=== PATIENT | female | born 1940 | race Caucasian/White ===

== ENCOUNTER 2017-04-03 13:47 | Inpatient (IN) | payer MEDICARE, BC ==
--- OUTSIDE RECORDS SUMMARY | 2017-04-03 14:10 | XMS REPORT | Continuity of Care Document ---
:1940 Author Organization [facility] ([facility]) Address [address] [place] [address] Phone [phone] Care Team Providers Name Role Phone Allen Ramos Primary Care Provider [phone] Source Comments This disclosure is being made pursuant to the Care Everywhere program, applicable federal and state laws, and may not contain all informaitonavailable regarding this patient.[facility] ([facility]) Active Allergies and Adverse Reactions Allergen Noted Date Severity Reactions Comments Penicillins Angioedema right arm swelled up and felt burned Current Medications Prescription Sig. Disp. Refills Start Date End Date Status Amantadine 100 mg Tab Take 100 mg by mouth Active daily. fexofenadine 180 mg Take 180 mg by mouth Active tablet daily. Cholecalciferol, Take 1 Cap by mouth 3 Active Vitamin D3, (VITAMIN times daily. D) 400 unit Cap lovaSTATIN 40 mg Take 40 mg by mouth Active tablet every evening. citalopram 20 mg Take 20 mg by mouth Active tablet daily. escitalopram Take 5 mg by mouth Active (LEXAPRO) 5 mg tablet daily. clonazePAM 0.5 mg Take 0.5 mg by mouth Active tablet daily. fluticasone (FLONASE) use 2 Sprays into the Active 50 mcg/Actuation nose 2 times daily. nasal spray Indications: ALLERGIC RHINITIS omeprazole 40 mg Take 40 mg by mouth Active extended release daily. capsule carbidopa-levodopa Take 1 Tab by mouth 3 Active 25-100 mg per tablet times daily. donepezil 5 mg tablet Take 10 mg by mouth at Active bedtime. Indications: MILD TO MODERATE ALZHEIMER'S TYPE DEMENTIA oxybutynin 5 mg Take 5 mg by mouth 3 Active tablet times daily. gabapentin 300 mg Take 300 mg by mouth 2 Active capsule times daily. QUEtiapine 25 mg Take 25 mg by mouth 2 Active tablet times daily. HYDROcodone-acetamino Take 1 Tab by mouth 20 Tab 0 05/02/2014 Active phen 5-325 mg per every 4 hours as tablet needed for Pain. DO NOT EXCEED 3,000 MG ACETAMINOPHEN PER DAY FROM ALL SOURCES Indications: PAIN ibuprofen 800 mg Take 1 Tab by mouth 20 Tab 0 05/02/2014 Active tablet every 6 hours as needed for Pain. DO NOT EXCEED 3,200 MG IBUPROFEN PER DAY FROM ALL SOURCES Indications: PAIN Active Problems Problem Noted Date Mixed incontinence urge and stress (male)(female) 10/12/2011 Parkinson's disease 10/12/2011 Pre-operative cardiovascular examination 07/22/2004 Essential hypertension, benign 07/22/2004 Social History Tobacco Use Types Packs/Day Years Used Date Former Smoker Cigarettes 1 Quit: 11/06/1991 Smokeless Tobacco: Never Used Alcohol Use Drinks/Week oz/Week Comments Yes 1 Cans of beer Last Filed Vital Signs Vital Sign Reading Time Taken Blood Pressure 113/52 05/19/2014 10:06 AM CDT Pulse 68 05/19/2014 10:06 AM CDT Temperature 36.7 C (98.1 F) 05/19/2014 10:06 AM CDT Respiratory Rate 20 07/19/2013 12:28 PM CDT Height 1.6 m (5' 2.99") 05/19/2014 10:06 AM CDT Weight 63.504 kg (140 lb) 05/19/2014 10:06 AM CDT Body Mass Index 24.81 05/19/2014 10:06 AM CDT Oxygen Saturation 100% 05/19/2014 10:06 AM CDT Plan of Care Health Maintenance Due Date Last Done Comments Hepatitis B Vaccine (1 of 3 - Primary Series) 1940 Tdap Vaccine 1951 Lipid Disorder Screening 1958 Td Vaccine 1958 Mammogram 1980 Colonoscopy 1990 Zoster Vaccine 2000 Osteoporosis Screening (DXA Bone Density) 2005 Pneumococcal Vaccine (1 of 2 - PCV13) 2005 Influenza Vaccine: Seasonal (#1) 06/06/2016 Results from Last 3 Months Not on file
[2017-04-03] MEDS: NORMAL SALINE 1,000 ML IV PRN (14:18)
[2017-04-03 14:28] LABS: Mean Cell Volume 87.7 fl (78-100); Mean Corpuscular Hgb Conc 31.9 g/dl (32-36); Mean Platelet Volume 8.6 fl (6.0-9.5); Neutrophil # 8.6 K/mm3 (1.3-6.0); Neutrophil % 75.3 % (42-75.0); Platelet Count 355 K/mm3 (150-450); Red Blood Count 2.61 M/mm3 (4.2-5.4); Red Cell Distribution Width 17.4 % (11.5-14.0); White Blood Count 11.4 K/mm3 (4.0-10.5)
[2017-04-03 14:33] LABS: Hematocrit 22.9 % (37.0-47.0); Hemoglobin 7.3 gm/dL (12.5-16.0)
[2017-04-03 14:42] LABS: Albumin * 2.1 gm/dl (3.4-5.0); Anion Gap 11.5 mmol/L (6.8-13.8); BUN/Creatinine Ratio 38.8 (9.0-21.6); Bilirubin, Total 0.2 mg/dL (0.0-1.1); Ca. Corrected For Albumin 10.5 mg/dL (8.4-10.2); Calcium * 9.3 mg/dL (7.9-10.9); Potassium 4.5 mmol/L (3.4-4.6); Total Protein 6.8 gm/dL (6.2-8.2)
--- NOTE | 2017-04-03 14:54 | ERNOTE ---
Medical Problem HPI - Narrative Date of Service: 04/03/17 - General Chief Complaint: Fever Time Seen by Provider: 04/03/17 13:53 Source: EMS Exam Limitations: dementia - Immun/Allergies/Home Medications Immunizations: IMMUNIZATION HX Immunizations Up to Date Yes History of Influenza Vaccine Yes Hx Pneumococcal Vaccination Yes Allergies/Adverse Reactions: Allergies Penicillins Allergy (Verified 04/03/17 14:05) Home Medications: HOME MEDICATIONS Acetaminophen [Tylenol] 650 mg PO QID PRN 07/01/16 [Last Taken Unknown] Cholecalciferol (Vitamin D3) [Vitamin D3] 2,000 unit PO DAILY 07/01/16 [Last Taken Unknown] Clonidine HCl [Catapres] 0.1 mg PO TID 07/01/16 [Last Taken Unknown] Donepezil HCl [Aricept] 10 mg PO HS 07/01/16 [Last Taken Unknown] Omeprazole 40 mg PO DAILY 07/01/16 [Last Taken Unknown] Polyethylene Glycol 3350 [Gavilax] 17 gm PO DAILY PRN 07/01/16 [Last Taken Unknown] Vits A,C,E/Lutein/Minerals [I-Faviola Tablet] 2 each PO BID 07/01/16 [Last Taken Unknown] LORazepam [Ativan] 0.5 mg PO Q4H PRN #60 tablet 07/15/16 [Last Taken Unknown] Losartan Potassium [Cozaar] 50 mg PO HS #30 tablet 07/15/16 [Last Taken Unknown] Carbidopa/Levodopa Cr 25/100 [Sinemet Cr 25/100] 1 tab PO QID 04/03/17 [Last Taken Unknown] Meloxicam [Mobic] 15 mg PO DAILY 04/03/17 [Last Taken Unknown] Pimavanserin Tartrate [Nuplazid] 17 mg PO DAILY 04/03/17 [Last Taken Unknown] QUEtiapine FUMARATE [Seroquel] 25 mg PO BID 04/03/17 [Last Taken Unknown] levETIRAcetam [Keppra] 250 mg PO BID 04/03/17 [Last Taken Unknown] - History of Present History Narrative: This 76 y/o end stage Parkinson's woman resides at [facility]. Today, she was more lethargic and her temperature was 101. For these reasons, she was brought by ambulance to the [facility] ER. Her hgb was also 7.3 today, but this is only about a gram less than 8 months ago. Her urine is consistent with a UTI, so this is probably where her fever originated, because her CXR is nonacute. Her lethargy today is not much more than usual, based on my assessment, related to her end stage Parkinson's. Her [facility] at the same [facility], quite intact, and very attentive. Timing: unsure Severity: moderate Modifying Factors - (Improves): Present: other - nothing Modifying Factors - (Worsens): Present: other - unknown Review of Systems - Review of Systems Constitutional: Present: no symptoms reported - unable, due to dementia - Patient's Past Medical History Patient History - Medical: Alzheimer's Disease, Chronic Pain, Osteoporosis, Other - Parkinson's Patient History - Cardiac/Respiratory: Hyperlipidemia Patient History - Cancer: No Hx of Cancer Patient History - Surgical Procedures: Appendectomy, Cataracts, Cholecystectomy , Hysterectomy, Other Patient History - Other: None - Family History Mother Family History - Medical: , History Unknown Family History - Cardiac/Respiratory: History Unknown Father Family History - Medical: Family History - Cardiac/Respiratory: Coronary Heart Disease - Social History Living Situations: [facility] Abuse History: No History of abuse Psych History: Psychiatric Hx Smoking Status: Never smoker Alcohol Use: none Drug Use: none - Immunizations Immunizations Up to Date: Yes Hx Pneumococcal Vaccination: Yes History of Influenza Vaccine: Yes Physical Exam - Physical Exam General Appearance: Present: wd/wn, lethargic Eye Exam: Normal inspection: bilateral, PERRL: bilateral, EOMI: bilateral Ears, Nose, Throat: Present: normal ENT inspection Neck: Present: normal inspection Respiratory: Present: no respiratory distress, normal breath sounds Cardiovascular/Chest: Present: regular rate, rhythm, no murmur Gastrointestinal/Abdominal: Present: normal bowel sounds, nontender, nondistended, soft, no organomegaly Back Exam: Present: normal inspection Extremity Exam: Present: normal inspection Neurological Exam: Present: other Skin Exam: Present: normal color, warm/dry, cool/dry ED Progress - Results and Orders Patient's Lab Results:: I have reviewed the patient's lab results. - Vital Signs Patient's Vital Signs:: I have reviewed the patient's vital signs. Vital Signs: Vital Signs 04/03/17 13:53 Temperature 36.3 C L Pulse Rate 58 L Respiratory 20 Rate Blood Pressure 110/43 O2 Sat by Pulse 98 Oximetry - X-Ray X-Ray #1 X-Ray: chest Interpretation: Interp. by me - non acute - Progress/Reassessment Chief Complaint: Fever Progress:: Unchanged Progress Note-Subjective: 04/03/17 15:54 I spoke by phone with Dr. Kingston who agreed to accept this patient as an acute medical surgical floor admission. Departure - Departure Clinical Impression: UTI (urinary tract infection) Qualifiers: Urinary tract infection type: site unspecified Hematuria presence: without hematuria Qualified Code(s): N39.0 - Urinary tract infection, site not specified Anemia Qualifiers: Anemia type: unspecified type Qualified Code(s): D64.9 - Anemia, unspecified Disposition: [facility] Condition: Fair Referrals: Allen Altamirano MD [Primary Care Provider] -
[2017-04-03] MEDS ORDERED: VANCOMYCIN HCL 750 MG in DEXTROSE 5 % IN WATER 250 ML IV ONE ×2 (15:08)
[2017-04-03 15:10] LABS: Urine Bacteria 4+; Urine Mucus Moderate - 2+; Urine RBC 0-5 /hpf (0-5); Urine WBC >50 /hpf (0-5)
--- OUTSIDE RECORDS SUMMARY | 2017-04-03 15:48 | XMS REPORT | Continuity of Care Document ---
:1940 Author Organization [facility] ([facility]) Address [address] [place] [address] Phone [phone] Care Team Providers Name Role Phone Allen Ramos Primary Care Provider [phone] Source Comments This disclosure is being made pursuant to the Care Everywhere program, applicable federal and state laws, and may not contain all informaitonavailable regarding this patient.[facility] ([facility]) Active Allergies and Adverse Reactions Allergen Noted [...]
[2017-04-03] MEDS ORDERED: VANCOMYCIN HCL 1 GM in DEXTROSE 5 % IN WATER 250 ML IV SCH ×2 (16:45)
[2017-04-03] MEDS ORDERED: CLONIDINE HCL 0.1 MG TABLET PO SCH (17:00)
[2017-04-03] MEDS ORDERED: POLYETHYLENE GLYCOL 3350 119 GM BTL PO PRN (18:31)
[2017-04-03] MEDS: CARBIDOPA/LEVODOPA CR 25/100 1 TAB TABLET.SA PO SCH ×2 (18:50→20:44)
[2017-04-03] MEDS: ENOXAPARIN SODIUM 40 MG/0.4 ML SYRG SC SCH (18:52)
[2017-04-03] MEDS: DONEPEZIL HCL 10 MG TABLET PO SCH (20:44)
[2017-04-03] MEDS: LOSARTAN POTASSIUM 50 MG TABLET PO SCH (20:44)
[2017-04-03] MEDS: levETIRAcetam 500 MG TABLET PO SCH (20:44)
[2017-04-03] MEDS: QUEtiapine FUMARATE 25 MG TABLET PO SCH (20:44)
[2017-04-03] MEDS: BETA-CAROTENE(A) W-C , E/MIN 1 TAB TABLET PO SCH (20:47)
[2017-04-04] MEDS: ACETAMINOPHEN 325 MG TABLET PO PRN (02:33)
[2017-04-04 06:00] LABS: Mean Cell Volume 86.5 fl (78-100); Mean Corpuscular Hemoglobin 28.1 pg (27-31); Mean Corpuscular Hgb Conc 32.4 g/dl (32-36); Mean Platelet Volume 8.9 fl (6.0-9.5); Neutrophil % 85.8 % (42-75.0); Platelet Count 370 K/mm3 (150-450); Red Cell Distribution Width 17.4 % (11.5-14.0); White Blood Count 17.5 K/mm3 (4.0-10.5)
[2017-04-04 06:09] LABS: Hemoglobin 7.3 gm/dL (12.5-16.0)
[2017-04-04 06:10] LABS: Hematocrit 22.5 % (37.0-47.0)
[2017-04-04 06:14] LABS: Anion Gap 13.7 mmol/L (6.8-13.8); BUN/Creatinine Ratio 38.1 (9.0-21.6); Calcium * 9.2 mg/dL (7.9-10.9); Carbon Dioxide 25.6 mmol/L (24-32.6); Estimated Creat Clear 44.7; Potassium 4.3 mmol/L (3.4-4.6)
[2017-04-04] MEDS: levETIRAcetam 500 MG TABLET PO SCH ×2 (08:51→20:08)
[2017-04-04] MEDS: CLONIDINE HCL 0.1 MG TABLET PO SCH ×3 (08:51→20:09)
[2017-04-04] MEDS: BETA-CAROTENE(A) W-C , E/MIN 1 TAB TABLET PO SCH ×2 (08:51→20:07)
[2017-04-04] MEDS: CARBIDOPA/LEVODOPA CR 25/100 1 TAB TABLET.SA PO SCH ×4 (08:51→20:10)
[2017-04-04] MEDS: PANTOPRAZOLE SODIUM 40 MG TABLET.EC PO SCH (08:51)
[2017-04-04] MEDS: QUEtiapine FUMARATE 25 MG TABLET PO SCH ×2 (08:51→20:08)
[2017-04-04] MEDS: LORazepam 0.5 MG TABLET PO PRN (08:51)
[2017-04-04] MEDS: CHOLECALCIFEROL 1,000 UNIT CAPSULE PO SCH (08:51)
[2017-04-04] MEDS ORDERED: NUPLAZID 17 MG PO SCH (09:00)
[2017-04-04] MEDS: VANCOMYCIN HCL 1.25 GM in DEXTROSE 5 % IN WATER 250 ML IV SCH ×2 (12:26)
[2017-04-04] MEDS: ENOXAPARIN SODIUM 40 MG/0.4 ML SYRG SC SCH (15:54)
[2017-04-04] MEDS: NORMAL SALINE 1,000 ML IV PRN (16:00)
[2017-04-04] MEDS: DONEPEZIL HCL 10 MG TABLET PO SCH (20:08)
[2017-04-04] MEDS: LOSARTAN POTASSIUM 50 MG TABLET PO SCH (20:08)
[2017-04-05] MEDS: PANTOPRAZOLE SODIUM 40 MG TABLET.EC PO SCH (06:39)
[2017-04-05 07:56] LABS: Mean Cell Volume 88.6 fl (78-100); Mean Corpuscular Hgb Conc 31.7 g/dl (32-36); Mean Platelet Volume 9.2 fl (6.0-9.5); Neutrophil # 10.5 K/mm3 (1.3-6.0); Neutrophil % 77.7 % (42-75.0); Platelet Count 330 K/mm3 (150-450); Red Blood Count 2.46 M/mm3 (4.2-5.4); Red Cell Distribution Width 17.6 % (11.5-14.0); White Blood Count 13.5 K/mm3 (4.0-10.5)
[2017-04-05 07:59] LABS: Hematocrit 21.8 % (37.0-47.0); Hemoglobin 6.9 gm/dL (12.5-16.0)
[2017-04-05 08:07] LABS: Anion Gap 12.6 mmol/L (6.8-13.8); BUN/Creatinine Ratio 44.5 (9.0-21.6); Calcium * 9.6 mg/dL (7.9-10.9); Carbon Dioxide 25.2 mmol/L (24-32.6); Estimated Creat Clear 42.5; Potassium 4.8 mmol/L (3.4-4.6)
--- NOTE | 2017-04-05 08:11 | PN ---
Subjective - Date and Time Seen Date: 04/05/17 Time: 07:00 Subjective Narrative: Obtunded. No distress. Labs pending. Growing proteus plus one other gram negative from urine. MRSA positive screen. Objective - Review of Systems Generalized/Overall Review: Reports: No Symptoms Reported - obtunded. - Vitals Vitals: Last Vital Signs Selected Entries 04/05/17 06:36 Temperature 37.5 C Temperature Axillary Source Pulse Rate 62 Respiratory 20 Rate Respiratory Normal Depth Blood Pressure 118/76 Blood Pressure Supine Position O2 Sat by Pulse 100 Oximetry Oxygen Delivery Room Air Method - Abnormal Lab Findings Abnormal Lab Findings: Abnormal Lab Results 04/05/17 Range/Units 07:50 WBC 13.5 H D (4.0-10.5) K/mm3 RBC 2.46 L (4.2-5.4) M/mm3 Hgb 6.9 L* (12.5-16.0) gm/dL Hct 21.8 L* (37.0-47.0) % MCHC 31.7 L (32-36) g/dl RDW 17.6 H (11.5-14.0) % Immature Gran % (Auto) 0.90 H (0.001-0.429) % Immature Gran # (Auto) 0.12 H (0.000-0.0310) K/mm3 Neutrophils % 77.7 H (42-75.0) % Lymphocytes % 8.6 L (20-51) % Monocytes % 11.8 H (0.0-9) % Neutrophils # 10.5 H (1.3-6.0) K/mm3 Lymphocytes # 1.2 L (1.5-3.5) k/mm3 Monocytes # 1.6 H (0.0-1.0) k/mm3 - Exam Constitutional: Present: Obtunded ENT Exam: Present: normal ENT inspection Respiratory: Present: lungs clear, no respiratory distress Cardiovascular/Chest: Present: regular rate, rhythm, no murmur Abdomen: Present: Normal bowel sounds, soft, nondistended, no hepatospenomegaly , no masses Extremity: Present: no pedal edema Skin Exam: Present: no cyanosis, cool/dry Neurologic: Present: other Appearance: Present: appropriate appearance, neat Cauti Physician Documentation - Urinary Catheter Management Urethral (Pringle) Date of Insertion: 04/03/17 Time of Insertion: 14:48 Assessment/Plan Plan Narrative: IV antibiotics. Bactroban. Hibiclens. Await labs. - Problems/Diagnosis (1) MRSA (methicillin resistant Staphylococcus aureus) carrier Problem: Acute (2) Lethargy Problem: Acute (3) UTI (urinary tract infection) Problem: Acute Qualifiers: Urinary tract infection type: site unspecified Hematuria presence: without hematuria Qualified Code(s): N39.0 - Urinary tract infection, site not specified
[2017-04-05] MEDS: MUPIROCIN 22 APPL TUBE TP SCH ×2 (09:29→20:56)
[2017-04-05] MEDS: BETA-CAROTENE(A) W-C , E/MIN 1 TAB TABLET PO SCH ×2 (09:30→20:56)
[2017-04-05] MEDS: [UNRECOGNIZED DRUG - OTHER] TP SCH ×2 (09:30→20:57)
[2017-04-05] MEDS: levETIRAcetam 500 MG TABLET PO SCH ×2 (09:30→20:55)
[2017-04-05] MEDS: CHOLECALCIFEROL 1,000 UNIT CAPSULE PO SCH (09:31)
[2017-04-05] MEDS: CARBIDOPA/LEVODOPA CR 25/100 1 TAB TABLET.SA PO SCH ×4 (09:31→20:55)
[2017-04-05] MEDS: QUEtiapine FUMARATE 25 MG TABLET PO SCH ×2 (09:31→20:56)
[2017-04-05] MEDS: CLONIDINE HCL 0.1 MG TABLET PO SCH ×3 (09:39→17:44)
[2017-04-05] MEDS: NUPLAZID 17 MG PO SCH (09:40)
[2017-04-05] MEDS: ACETAMINOPHEN 325 MG TABLET PO PRN ×2 (13:50→22:33)
[2017-04-05] MEDS: VANCOMYCIN HCL 1.25 GM in DEXTROSE 5 % IN WATER 250 ML IV SCH ×2 (15:25)
[2017-04-05] MEDS: NORMAL SALINE 1,000 ML IV PRN (17:35)
[2017-04-05] MEDS: ENOXAPARIN SODIUM 40 MG/0.4 ML SYRG SC SCH (17:46)
[2017-04-05] MEDS: LORazepam 0.5 MG TABLET PO PRN (18:55)
[2017-04-05] MEDS: LOSARTAN POTASSIUM 50 MG TABLET PO SCH (20:56)
[2017-04-05] MEDS: DONEPEZIL HCL 10 MG TABLET PO SCH (20:56)
[2017-04-06] MEDS: LORazepam 0.5 MG TABLET PO PRN (02:59)
[2017-04-06 05:37] LABS: Hematocrit 29.3 % (37.0-47.0); Hemoglobin 9.6 gm/dL (12.5-16.0); Mean Cell Volume 86.7 fl (78-100); Mean Corpuscular Hemoglobin 28.4 pg (27-31); Mean Corpuscular Hgb Conc 32.8 g/dl (32-36); Mean Platelet Volume 8.6 fl (6.0-9.5); Neutrophil # 11.7 K/mm3 (1.3-6.0); Neutrophil % 87.3 % (42-75.0); Platelet Count 324 K/mm3 (150-450); Red Blood Count 3.38 M/mm3 (4.2-5.4); Red Cell Distribution Width 16.4 % (11.5-14.0); White Blood Count 13.4 K/mm3 (4.0-10.5)
[2017-04-06] MEDS: ACETAMINOPHEN 325 MG TABLET PO PRN ×2 (05:49→13:56)
[2017-04-06 05:54] LABS: BUN/Creatinine Ratio 37.6 (9.0-21.6); Calcium * 9.4 mg/dL (7.9-10.9); Carbon Dioxide 26.7 mmol/L (24-32.6); Potassium 4.7 mmol/L (3.4-4.6)
[2017-04-06] MEDS: PANTOPRAZOLE SODIUM 40 MG TABLET.EC PO SCH (06:41)
[2017-04-06] MEDS: CLONIDINE HCL 0.1 MG TABLET PO SCH ×3 (09:08→17:14)
[2017-04-06] MEDS: [UNRECOGNIZED DRUG - OTHER] TP SCH ×2 (09:09→21:33)
[2017-04-06] MEDS: levETIRAcetam 500 MG TABLET PO SCH ×2 (09:10→21:33)
[2017-04-06] MEDS: QUEtiapine FUMARATE 25 MG TABLET PO SCH ×2 (09:10→21:33)
[2017-04-06] MEDS: CHOLECALCIFEROL 1,000 UNIT CAPSULE PO SCH (09:11)
[2017-04-06] MEDS: CARBIDOPA/LEVODOPA CR 25/100 1 TAB TABLET.SA PO SCH ×4 (09:11→21:33)
[2017-04-06] MEDS: BETA-CAROTENE(A) W-C , E/MIN 1 TAB TABLET PO SCH ×2 (09:12→21:34)
[2017-04-06] MEDS: NUPLAZID 17 MG PO SCH (09:13)
[2017-04-06] MEDS: MUPIROCIN 22 APPL TUBE TP SCH ×2 (09:13→21:32)
--- NOTE | 2017-04-06 12:54 | PN ---
Subjective - Date and Time Seen Date: 04/06/17 Time: 07:30 Subjective Narrative: Obtunded. No distress. Growing Proteus and Klebsiella from urine. MRSA positive screen. I thought to send her back to [place] today on IV Rocephin this morning, but last night she had a fever. Yesterday, she had a brief drop in BP , which came 30 minutes after her clonidine and which I thought was due to her clonidine. Now I think it was probably a mild transfusion reaction. Objective - Review of Systems Generalized/Overall Review: Reports: No Symptoms Reported - demented. - Vitals Vitals: Last Vital Signs Selected Entries 04/06/17 07:21 Temperature 37.1 C Temperature Temporal Artery Source Scan Pulse Rate 91 Respiratory 32 H Rate Blood Pressure 168/60 Blood Pressure Supine Position O2 Sat by Pulse 94 Oximetry Oxygen Delivery Room Air Method - Abnormal Lab Findings Abnormal Lab Findings: Abnormal Lab Results 04/06/17 04/06/17 Range/Units 05:31 05:31 WBC 13.4 H (4.0-10.5) K/mm3 RBC 3.38 L (4.2-5.4) M/mm3 Hgb 9.6 L (12.5-16.0) gm/dL Hct 29.3 L (37.0-47.0) % RDW 16.4 H (11.5-14.0) % Immature Gran % (Auto) 1.00 H (0.001-0.429) % Immature Gran # (Auto) 0.14 H (0.000-0.0310) K/mm3 Neutrophils % 87.3 H (42-75.0) % Lymphocytes % 3.4 L (20-51) % Neutrophils # 11.7 H (1.3-6.0) K/mm3 Lymphocytes # 0.5 L (1.5-3.5) k/mm3 Monocytes # 1.1 H (0.0-1.0) k/mm3 Potassium 4.7 H (3.4-4.6) mmol/L Anion Gap 14.0 H (6.8-13.8) mmol/L BUN 38 H (3-23) mg/dL Est GFR (Non-Af Amer) 57 L D (60-130) mL/min BUN/Creatinine Ratio 37.6 H (9.0-21.6) Random Glucose 151 H (70-110) mg/dL - Exam Constitutional: Present: Obtunded ENT Exam: Present: normal ENT inspection Neck: Present: normal inspection Respiratory: Present: normal breath sounds, no respiratory distress Cardiovascular/Chest: Present: regular rate, rhythm, no murmur Abdomen: Present: Normal bowel sounds, soft, nondistended, no hepatospenomegaly , no masses Extremity: Present: normal inspection, no pedal edema Skin Exam: Present: no cyanosis, cool/dry Neurologic: Present: other Cauti Physician Documentation - Urinary Catheter Management Urethral (Pringle) Date of Insertion: 04/03/17 Time of Insertion: 14:48 Assessment/Plan Plan Narrative: Wait till tomorrow. If afebrile and stable, to [facility] on IV rocephin. Labs. - Problems/Diagnosis (1) MRSA (methicillin resistant Staphylococcus aureus) carrier Problem: Acute (2) Lethargy Problem: Acute (3) UTI (urinary tract infection) Problem: Acute Qualifiers: Urinary tract infection type: site unspecified Hematuria presence: without hematuria Qualified Code(s): N39.0 - Urinary tract infection, site not specified (4) Alzheimer disease Problem: Acute (5) Transfusion reaction Problem: Acute Qualifiers: Encounter type: initial encounter Qualified Code(s): T80.92XA - Unspecified transfusion reaction, initial encounter (6) Binswanger's encephalopathy Problem: Chronic (7) Parkinsons disease Problem: Chronic
[2017-04-06] MEDS: ENOXAPARIN SODIUM 40 MG/0.4 ML SYRG SC SCH (17:09)
[2017-04-06] MEDS: NORMAL SALINE 1,000 ML IV PRN (17:25)
[2017-04-06] MEDS: DONEPEZIL HCL 10 MG TABLET PO SCH (21:32)
[2017-04-06] MEDS: LOSARTAN POTASSIUM 50 MG TABLET PO SCH (21:33)
[2017-04-07 05:45] LABS: Hematocrit 29.1 % (37.0-47.0); Hemoglobin 9.5 gm/dL (12.5-16.0); Mean Cell Volume 86.9 fl (78-100); Mean Corpuscular Hemoglobin 28.4 pg (27-31); Mean Corpuscular Hgb Conc 32.6 g/dl (32-36); Mean Platelet Volume 8.8 fl (6.0-9.5); Neutrophil # 9.3 K/mm3 (1.3-6.0); Neutrophil % 81.6 % (42-75.0); Platelet Count 332 K/mm3 (150-450); Red Blood Count 3.35 M/mm3 (4.2-5.4); Red Cell Distribution Width 16.6 % (11.5-14.0); White Blood Count 11.4 K/mm3 (4.0-10.5)
[2017-04-07 06:05] LABS: Anion Gap 13.6 mmol/L (6.8-13.8); BUN/Creatinine Ratio 38.6 (9.0-21.6); Calcium * 9.5 mg/dL (7.9-10.9); Estimated Creat Clear 57.4; Potassium 4.6 mmol/L (3.4-4.6)
[2017-04-07] MEDS: PANTOPRAZOLE SODIUM 40 MG TABLET.EC PO SCH (07:03)
[2017-04-07] MEDS: CLONIDINE HCL 0.1 MG TABLET PO SCH (09:53)
[2017-04-07] MEDS: MUPIROCIN 22 APPL TUBE TP SCH (09:53)
[2017-04-07] MEDS: NUPLAZID 17 MG PO SCH (09:54)
[2017-04-07] MEDS: [UNRECOGNIZED DRUG - OTHER] TP SCH (09:54)
[2017-04-07] MEDS: BETA-CAROTENE(A) W-C , E/MIN 1 TAB TABLET PO SCH (09:54)
[2017-04-07] MEDS: levETIRAcetam 500 MG TABLET PO SCH (09:54)
[2017-04-07] MEDS: QUEtiapine FUMARATE 25 MG TABLET PO SCH (09:54)
[2017-04-07] MEDS: CHOLECALCIFEROL 1,000 UNIT CAPSULE PO SCH (09:54)
[2017-04-07] MEDS: CARBIDOPA/LEVODOPA CR 25/100 1 TAB TABLET.SA PO SCH (09:54)
[2017-04-07 10:54] VITALS: BP 154/62
--- NOTE | 2017-04-07 12:04 | DS ---
(1) MRSA (methicillin resistant Staphylococcus aureus) carrier Problem: Acute (2) Lethargy Problem: Acute (3) UTI (urinary tract infection) Problem: Acute Qualifiers: Urinary tract infection type: site unspecified Hematuria presence: without hematuria Qualified Code(s): N39.0 - Urinary tract infection, site not specified (4) Alzheimer disease Problem: Chronic Qualifiers: Alzheimer's disease onset: late-onset Dementia behavioral disturbance: with behavioral disturbance Qualified Code(s): G30.1 - Alzheimer's disease with late onset; F02.81 - Dementia in other diseases classified elsewhere with behavioral disturbance (5) Transfusion reaction Problem: Acute Qualifiers: Encounter type: initial encounter Qualified Code(s): T80.92XA - Unspecified transfusion reaction, initial encounter (6) Binswanger's encephalopathy Problem: Chronic (7) Parkinsons disease Problem: Chronic Procedures Performed: none Discharge Disposition: [facility] Disposition: [place] Condition: Fair Discharge Activity: Activity as tolerated Discharge Diet: Tube Feedings - Jevity 1.2 55 ml per hour, continuous, 35 ml water flush hourly Discharge Level of Care:: ICF - Senior Living Referrals: Allen Altamirano MD [Primary Care Provider] - Problem Oriented Discharge Instructions to Patient/Family: Urinary Tract Infection, Adult, [id number] Additional Patient Instructions (free text): Maintain winters for 8 more daily starting tomorrow so we can flush it with 60 ml saline each shift. then d/c winters. Flush winetrs each shift with 60 ml saline starting today. Use a straight cath to obtain a UA and C&S in 14 days. Give Rocephin 1 gm IM daily for 8 more days starting tomorrow then stop. CBC and CMP blood tests in 7 days. Prescriptions (Any new or edited meds): cefTRIAXone SODIUM [Rocephin] 1 gm IM DAILY #8 vial Complete Home Medications List: Complete Home Medication List: Acetaminophen [Tylenol] 650 mg PO QID PRN 07/01/16 Cholecalciferol (Vitamin D3) [Vitamin D3] 2,000 unit PO DAILY 07/01/16 Clonidine HCl [Catapres] 0.1 mg PO TID 07/01/16 Donepezil HCl [Aricept] 10 mg PO HS 07/01/16 Omeprazole 40 mg PO DAILY 07/01/16 Polyethylene Glycol 3350 [Gavilax] 17 gm PO DAILY PRN 07/01/16 Vits A,C,E/Lutein/Minerals [I-Faviola Tablet] 2 each PO BID 07/01/16 LORazepam [Ativan] 0.5 mg PO Q4H PRN #60 tablet 07/15/16 Losartan Potassium [Cozaar] 50 mg PO HS #30 tablet 07/15/16 Carbidopa/Levodopa Cr 25/100 [Sinemet Cr 25/100] 1 tab PO QID 04/03/17 Pimavanserin Tartrate [Nuplazid] 17 mg PO DAILY 04/03/17 QUEtiapine FUMARATE [Seroquel] 25 mg PO BID 04/03/17 levETIRAcetam [Keppra] 250 mg PO BID 04/03/17 cefTRIAXone SODIUM [Rocephin] 1 gm IM DAILY #8 vial 04/07/17
--- NOTE | 2017-04-07 12:06 | HP ---
Chief Complaint - Chief Complaint Date of Service: 04/03/17 Time of Service: 21:00 Chief Complaint: Lethargy History of Present Illness: This 76 y/o end stage Parkinson's woman resides at [facility]. Today, she was more lethargic and her temperature was 101. For these reasons, she was brought by ambulance to the [facility] ER. Her hgb was also 7.3 on the day of admission, but this is only about a gram less than 8 months ago. Her urine is consistent with a UTI, so this is probably where her fever originated, because her CXR is nonacute. Her lethargy on the day of admission is not much more than usual, based on my assessment, related to her end stage Parkinson's. [facility], quite intact, and very attentive. - Patient's Past Medical History Patient History - Medical: Alzheimer's Disease, Chronic Pain, Osteoporosis, Other Patient History - Cardiac/Respiratory: Hyperlipidemia Patient History - Cancer: No Hx of Cancer Patient History - Surgical Procedures: Appendectomy, Cataracts, Cholecystectomy , Hysterectomy, Other Patient History - Other: None - Family History Mother Family History - Medical: , History Unknown Family History - Cardiac/Respiratory: History Unknown Father Family History - Medical: Family History - Cardiac/Respiratory: Coronary Heart Disease - Social History [facility] Situations: [facility] Abuse History: No History of abuse Psych History: Psychiatric Hx Smoking Status: Unknown if ever smoked Have you smoked in the past 12 months: No Alcohol Use: none Drug Use: none - Immunizations Immunizations Up to Date: Yes Hx Pneumococcal Vaccination: Yes History of Influenza Vaccine: Yes Review Of Systems (GEN) - Review of Systems Generalized/Overall Review: Present: No Symptoms Reported - due to dementia and obtundation Immunizations: IMMUNIZATION HX Immunizations Up to Date Yes History of Influenza Vaccine Yes Hx Pneumococcal Vaccination Yes Allergies/Adverse Reactions: Allergies Allergy/AdvReac Type Severity Reaction Status Date / Time Penicillins Allergy Verified 04/03/17 16:48 Home Medications: HOME MEDICATIONS Acetaminophen [Tylenol] 650 mg PO QID PRN 07/01/16 [Last Taken Unknown] Cholecalciferol (Vitamin D3) [Vitamin D3] 2,000 unit PO DAILY 07/01/16 [Last Taken Unknown] Clonidine HCl [Catapres] 0.1 mg PO TID 07/01/16 [Last Taken Unknown] Donepezil HCl [Aricept] 10 mg PO HS 07/01/16 [Last Taken Unknown] Omeprazole 40 mg PO DAILY 07/01/16 [Last Taken Unknown] Polyethylene Glycol 3350 [Gavilax] 17 gm PO DAILY PRN 07/01/16 [Last Taken Unknown] Vits A,C,E/Lutein/Minerals [I-Faviola Tablet] 2 each PO BID 07/01/16 [Last Taken Unknown] LORazepam [Ativan] 0.5 mg PO Q4H PRN #60 tablet 07/15/16 [Last Taken Unknown] Losartan Potassium [Cozaar] 50 mg PO HS #30 tablet 07/15/16 [Last Taken Unknown] Carbidopa/Levodopa Cr 25/100 [Sinemet Cr 25/100] 1 tab PO QID 04/03/17 [Last Taken Unknown] Pimavanserin Tartrate [Nuplazid] 17 mg PO DAILY 04/03/17 [Last Taken Unknown] QUEtiapine FUMARATE [Seroquel] 25 mg PO BID 04/03/17 [Last Taken Unknown] levETIRAcetam [Keppra] 250 mg PO BID 04/03/17 [Last Taken Unknown] cefTRIAXone SODIUM [Rocephin] 1 gm IM DAILY #8 vial 04/07/17 [Last Taken Unknown ] Exam - Exam Vital Signs: Vital Signs - Last Taken Selected Entries 04/03/17 19:00 Temperature 36.2 C L Pulse Rate 85 Respiratory 16 Rate Blood Pressure 144/70 O2 Sat by Pulse 97 Oximetry Constitutional: Present: Obtunded Eye Exam: bilateral eye: normal inspection, PERRL, EOMI Neck: Present: normal inspection Back Exam: Present: normal inspection Respiratory: Present: lungs clear, no respiratory distress Cardiovascular/Chest: Present: regular rate, rhythm, no edema Abdomen: Present: Normal bowel sounds, soft, nondistended, no hepatospenomegaly , no masses Extremity: Present: no pedal edema Skin Exam: Present: no cyanosis, cool/dry Neurologic: Present: other Appearance: Present: appropriate appearance Eye contact: Present: other Diagnostic Studies: Abnormal Lab Results 04/07/17 04/07/17 Range/Units 05:40 05:40 WBC 11.4 H (4.0-10.5) K/mm3 RBC 3.35 L (4.2-5.4) M/mm3 Hgb 9.5 L (12.5-16.0) gm/dL Hct 29.1 L (37.0-47.0) % RDW 16.6 H (11.5-14.0) % Immature Gran % (Auto) 1.00 H (0.001-0.429) % Immature Gran # (Auto) 0.11 H (0.000-0.0310) K/mm3 Neutrophils % 81.6 H (42-75.0) % Lymphocytes % 5.8 L (20-51) % Monocytes % 10.5 H (0.0-9) % Neutrophils # 9.3 H (1.3-6.0) K/mm3 Lymphocytes # 0.7 L (1.5-3.5) k/mm3 Monocytes # 1.2 H (0.0-1.0) k/mm3 BUN 34 H (3-23) mg/dL BUN/Creatinine Ratio 38.6 H (9.0-21.6) Random Glucose 134 H (70-110) mg/dL Laboratory Results WBC 11.4 K/mm3 (4.0-10.5) H 04/07/17 05:40 RBC 3.35 M/mm3 (4.2-5.4) L 04/07/17 05:40 Hgb 9.5 gm/dL (12.5-16.0) L 04/07/17 05:40 Hct 29.1 % (37.0-47.0) L 04/07/17 05:40 MCV 86.9 fl (78-100) 04/07/17 05:40 MCH 28.4 pg (27-31) 04/07/17 05:40 MCHC 32.6 g/dl (32-36) 04/07/17 05:40 RDW 16.6 % (11.5-14.0) H 04/07/17 05:40 Plt Count 332 K/mm3 (150-450) 04/07/17 05:40 MPV 8.8 fl (6.0-9.5) 04/07/17 05:40 Immature Gran % (Auto) 1.00 % (0.001-0.429) H 04/07/17 05:40 Immature Gran # (Auto) 0.11 K/mm3 (0.000-0.0310) H 04/07/17 05:40 Neutrophils % 81.6 % (42-75.0) H 04/07/17 05:40 Neutrophils % (Manual) Cancelled 04/05/17 07:50 Band Neuts % (Manual) Cancelled 04/05/17 07:50 Lymphocytes % 5.8 % (20-51) L 04/07/17 05:40 Lymphocytes % (Manual) Cancelled 04/05/17 07:50 Monocytes % 10.5 % (0.0-9) H 04/07/17 05:40 Monocytes % (Manual) Cancelled 04/05/17 07:50 Eosinophils % 0.8 % (0.0-3.0) 04/07/17 05:40 Eosinophils % (Manual) Cancelled 04/05/17 07:50 Basophils % 0.3 % (0.0-1.0) 04/07/17 05:40 Basophils % (Manual) Cancelled 04/05/17 07:50 Nucleated RBC % 0.0 k/mm3 (0-1) 04/07/17 05:40 Immature Granulocytes Cancelled 04/05/17 07:50 Neutrophils # 9.3 K/mm3 (1.3-6.0) H 04/07/17 05:40 Neutrophils # (Manual) Cancelled 04/05/17 07:50 Lymphocytes # 0.7 k/mm3 (1.5-3.5) L 04/07/17 05:40 Lymphocytes # (Manual) Cancelled 04/05/17 07:50 Monocytes # 1.2 k/mm3 (0.0-1.0) H 04/07/17 05:40 Monocytes # (Manual) Cancelled 04/05/17 07:50 Eosinophils # 0.1 k/mm3 (0.0-0.7) 04/07/17 05:40 Eosinophils # (Manual) Cancelled 04/05/17 07:50 Basophils # (Manual) Cancelled 04/05/17 07:50 Absolute Basophils 0.0 k/mm3 (0.0-0.1) 04/07/17 05:40 Nucleated RBCs Cancelled 04/05/17 07:50 Differential Comment Cancelled 04/05/17 07:50 Hypersegmented Polys Cancelled 04/05/17 07:50 Atypic/Reactive Lymphs Cancelled 04/05/17 07:50 Smudge Cells Cancelled 04/05/17 07:50 Other Cell Type Cancelled 04/05/17 07:50 Toxic Granulation Cancelled 04/05/17 07:50 Toxic Vacuolation Cancelled 04/05/17 07:50 Dohle Bodies Cancelled 04/05/17 07:50 Platelet Estimate Cancelled 04/05/17 07:50 Giant Platelets Cancelled 04/05/17 07:50 RBC Morphology Cancelled 04/05/17 07:50 Polychromasia Cancelled 04/05/17 07:50 Hypochromasia Cancelled 04/05/17 07:50 Poikilocytosis Cancelled 04/05/17 07:50 Basophilic Stippling Cancelled 04/05/17 07:50 Anisocytosis Cancelled 04/05/17 07:50 Microcytosis Cancelled 04/05/17 07:50 Macrocytosis Cancelled 04/05/17 07:50 Spherocytes Cancelled 04/05/17 07:50 Sickle Cells Cancelled 04/05/17 07:50 Target Cells Cancelled 04/05/17 07:50 Tear Drop Cells Cancelled 04/05/17 07:50 Ovalocytes Cancelled 04/05/17 07:50 Stomatocytes Cancelled 04/05/17 07:50 Kwon[place] Bodies Cancelled 04/05/17 07:50 Niya Cells Cancelled 04/05/17 07:50 Elliptocytes Cancelled 04/05/17 07:50 Rouleaux Cancelled 04/05/17 07:50 Schistocytes Cancelled 04/05/17 07:50 Morphology Comment Cancelled 04/05/17 07:50 Sodium 135 mmol/L (132-142) 04/07/17 05:40 Plasma Sodium 136 mmol/L (130-142) 04/07/17 05:40 Potassium 4.6 mmol/L (3.4-4.6) 04/07/17 05:40 Chloride 100 mmol/L (97-106) 04/07/17 05:40 Carbon Dioxide 26.0 mmol/L (24-32.6) 04/07/17 05:40 Anion Gap 13.6 mmol/L (6.8-13.8) 04/07/17 05:40 BUN 34 mg/dL (3-23) H 04/07/17 05:40 Creatinine 0.88 mg/dL (0.4-1.4) 04/07/17 05:40 Est GFR (Non-Af Amer) 66 mL/min (60-130) 04/07/17 05:40 BUN/Creatinine Ratio 38.6 (9.0-21.6) H 04/07/17 05:40 Random Glucose 134 mg/dL (70-110) H 04/07/17 05:40 Lactic Acid, Venous 1.2 mmol/L (0.4-1.9) 04/03/17 14:10 Calcium 9.5 mg/dL (7.9-10.9) 04/07/17 05:40 Calcium Adj for Albumin 10.5 mg/dL (8.4-10.2) H 04/03/17 14:10 Magnesium 2.1 mg/dL (1.2-2.8) 04/03/17 14:10 Total Bilirubin 0.2 mg/dL (0.0-1.1) 04/03/17 14:10 AST 17 U/L (0-48) 04/03/17 14:10 ALT 11 U/L (19-67) L 04/03/17 14:10 Alkaline Phosphatase 120 U/L (50-170) 04/03/17 14:10 Total Protein 6.8 gm/dL (6.2-8.2) 04/03/17 14:10 Albumin 2.1 gm/dl (3.4-5.0) L 04/03/17 14:10 Procalcitonin 0.18 ng/mL (0.05-0.50) 04/03/17 14:10 Urine Color Cancelled 04/03/17 15:00 Urine Appearance Cancelled 04/03/17 15:00 Urine pH Cancelled 04/03/17 15:00 Ur Specific Hoffmeister Cancelled 04/03/17 15:00 Urine Protein Cancelled 04/03/17 15:00 Urine Glucose (UA) Cancelled 04/03/17 15:00 Urine Ketones Cancelled 04/03/17 15:00 Urine Blood Cancelled 04/03/17 15:00 Urine Nitrate Cancelled 04/03/17 15:00 Urine Bilirubin Cancelled 04/03/17 15:00 Urine Urobilinogen Cancelled 04/03/17 15:00 Ur Leukocyte Esterase Cancelled 04/03/17 15:00 Urine RBC 0-5 /hpf (0-5) 04/03/17 15:00 Urine WBC >50 /hpf (0-5) H 04/03/17 15:00 Ur Epithelial Cells None seen /hpf (0-5) 04/03/17 15:00 Urine Bacteria 4+ (NONE) H 04/03/17 15:00 Urine Mucus Moderate - 2+ (NONE) H 04/03/17 15:00 Urine Comment Culture ordered L 04/03/17 15:00 Stool Occult Blood Negative 04/05/17 10:40 Blood Type O Negative 04/03/17 14:10 Antibody Screen Negative 04/03/17 14:10 Crossmatch See Detail 04/03/17 14:10 Assessment/Plan - Narrative Narrative: Admit. Antibiotis. Await cultures. Fluids. Estimate stay of 72 hours. - Assessment/Plan (1) Lethargy Problem: Acute (2) UTI (urinary tract infection) Problem: Acute Qualifiers: Urinary tract infection type: site unspecified Hematuria presence: without hematuria Qualified Code(s): N39.0 - Urinary tract infection, site not specified (3) Alzheimer disease Problem: Chronic Qualifiers: Alzheimer's disease onset: late-onset Dementia behavioral disturbance: with behavioral disturbance Qualified Code(s): G30.1 - Alzheimer's disease with late onset; F02.81 - Dementia in other diseases classified elsewhere with behavioral disturbance (4) Binswanger's encephalopathy Problem: Acute (5) Parkinsons disease Problem: Chronic
--- NOTE | 2017-05-07 12:39 | PN ---
Subjective - Date and Time Seen Date: 05/07/17 Time: 07:00 Subjective Narrative: Obtunded. No distress. Growin gram negative from uriine. frail. Objective - Review of Systems Generalized/Overall Review: Reports: No Symptoms Reported - Vitals Vitals: Last Vital Signs Selected Entries 04/04/17 06:47 Temperature 37.0 C Temperature Temporal Artery Source Scan Pulse Rate 83 Respiratory 18 Rate Blood Pressure 182/62 O2 Sat by Pulse 100 Oximetry Oxygen Delivery Room Air Method - Exam Constitutional: Present: Alert, Well developed, Thin and frail ENT Exam: Present: normal ENT inspection, hearing grossly normal Neck: Present: full range of motion Respiratory: Present: lungs clear Cardiovascular/Chest: Present: normal peripheral pulses Abdomen: Present: Normal bowel sounds, soft, nontender, nondistended, no rebound tenderness, no hepatospenomegaly /Rectal: Present: Exam deferred Extremity: Present: normal range of motion, non-tender, normal inspection Skin Exam: Present: normal color, warm/dry, no cyanosis Neurologic: Present: family member caretaker II-XII nml as tested Appearance: Present: appropriate appearance Eye contact: Present: cooperative Cauti Physician Documentation - Urinary Catheter Management Urethral ([place]) Date of Insertion: 04/03/17 Time of Insertion: 14:48 Assessment/Plan - Problems/Diagnosis (1) Lethargy Problem: Acute (2) UTI (urinary tract infection) Problem: Acute Qualifiers: Urinary tract infection type: site unspecified Hematuria presence: without hematuria Qualified Code(s): N39.0 - Urinary tract infection, site not specified (3) Alzheimer disease Problem: Chronic Qualifiers: Alzheimer's disease onset: late-onset Dementia behavioral disturbance: with behavioral disturbance Qualified Code(s): G30.1 - Alzheimer's disease with late onset; F02.81 - Dementia in other diseases classified elsewhere with behavioral disturbance (4) Binswanger's encephalopathy Problem: Chronic (5) Parkinsons disease Problem: Chronic
== END 2017-04-07 12:40 | DRG 690 ==
LOC: ER 13:47 → MS 15:44
PROVIDERS: ADMIT Family Medicine; ATTEND Allergy & Immunology
PROC: 30263N1 (ICD-10-PCS; principal; 2017-04-05)
DX: N39.0 Urinary tract infection, site not specified (principal); I67.3 Progressive vascular leukoencephalopathy; F02.81 Dementia in other diseases classified elsewhere, unspecified severity, with behavioral disturbance; Z22.322 Carrier or suspected carrier of Methicillin resistant Staphylococcus aureus; T80.92XA Unspecified transfusion reaction, initial encounter; G30.1 Alzheimer's disease with late onset; B96.1 Klebsiella pneumoniae [K. pneumoniae] as the cause of diseases classified elsewhere; G20 Parkinson's disease
CPT/HCPCS: 36415; 71010; 80048; 80053; 81015; 82272; 83605; 83735; 84145; 85025; 86078; 86850; 86900; 87040; 87077; 87081; 87086; 87186; 93005; 96365; 96367; 99284; P9016

== ENCOUNTER 2017-04-12 16:05 | Emergency (ER) | payer MEDICARE, BC ==
--- OUTSIDE RECORDS SUMMARY | 2017-04-12 16:56 | XMS REPORT | Continuity of Care Document ---
:1940 Author Organization [facility] ([facility]) Address [address] [place] [address] Phone [phone] Care Team Providers Name Role Phone Allen Ramos Primary Care Provider [phone] Source Comments This disclosure is being made pursuant to the Care Everywhere program, applicable federal and state laws, and may not contain all informaitonavailable regarding this patient.[facility] ([facility]) Active Allergies and Adverse Reactions Allergen [...]
[2017-04-12 17:11] VITALS: BP 145/67
--- NOTE | 2017-04-12 17:14 | ERNOTE ---
ER Female HPI Stated Complaint: ILL Presenting Symptoms: other Time Seen by Provider: 04/12/17 16:39 Source: [facility] records Exam Limitations: clinical condition, dementia Immunizations: IMMUNIZATION HX Immunizations Up to Date Yes History of Influenza Vaccine Yes Hx Pneumococcal Vaccination Yes Allergies/Adverse Reactions: Allergies Penicillins Allergy (Verified 04/12/17 16:21) Home Medications: HOME MEDICATIONS Acetaminophen [Tylenol] 650 mg PO QID PRN 07/01/16 [Last Taken Unknown] Cholecalciferol (Vitamin D3) [Vitamin D3] 2,000 unit PO DAILY 07/01/16 [Last Taken Unknown] Clonidine HCl [Catapres] 0.1 mg PO TID 07/01/16 [Last Taken Unknown] Donepezil HCl [Aricept] 10 mg PO HS 07/01/16 [Last Taken Unknown] Omeprazole 40 mg PO DAILY 07/01/16 [Last Taken Unknown] Polyethylene Glycol 3350 [Gavilax] 17 gm PO DAILY PRN 07/01/16 [Last Taken Unknown] Vits A,C,E/Lutein/Minerals [I-Faviola Tablet] 2 each PO BID 07/01/16 [Last Taken Unknown] LORazepam [Ativan] 0.5 mg PO Q4H PRN #60 tablet 07/15/16 [Last Taken Unknown] Losartan Potassium [Cozaar] 50 mg PO HS #30 tablet 07/15/16 [Last Taken Unknown] Carbidopa/Levodopa Cr 25/100 [Sinemet Cr 25/100] 1 tab PO QID 04/03/17 [Last Taken Unknown] Pimavanserin Tartrate [Nuplazid] 17 mg PO DAILY 04/03/17 [Last Taken Unknown] QUEtiapine FUMARATE [Seroquel] 25 mg PO BID 04/03/17 [Last Taken Unknown] levETIRAcetam [Keppra] 250 mg PO BID 04/03/17 [Last Taken Unknown] cefTRIAXone SODIUM [Rocephin] 1 gm IM DAILY #8 vial 04/07/17 [Last Taken Unknown ] L. Rhamnosus GG/Inulin [Culturelle Capsule] 1 each PO BID 04/12/17 [Last Taken Unknown] - History of Present Illness Narrative: Patient is unable to give a history due to dementia. She is brought in from the [facility] for concerns about passing stool through her vagina. Patient was recently admitted for a UTI, she is having an indwelling winters, is on IM rocephin for the UTI. No other reports of changed mentation or activity level as with recent admission Review of Systems - Narrative Narrative: unable to obtain - Patient's Past Medical History Patient History - Medical: Alzheimer's Disease, Chronic Pain, Osteoporosis, Other Patient History - Cardiac/Respiratory: Hypertension, Hyperlipidemia Patient History - Cancer: No Hx of Cancer Patient History - Surgical Procedures: Appendectomy, Cataracts, Cholecystectomy , Hysterectomy, Other Patient History - Other: None LMP (females 10-50): Menopausal - Family History Mother Family History - Medical: , History Unknown Family History - Cardiac/Respiratory: History Unknown Father Family History - Medical: Family History - Cardiac/Respiratory: Coronary Heart Disease - Social History Living Situations: [facility] Abuse History: No History of abuse Psych History: Psychiatric Hx Alcohol Use: none Drug Use: none - Immunizations Immunizations Up to Date: Yes Hx Pneumococcal Vaccination: Yes History of Influenza Vaccine: Yes Physical Exam - Physical Exam General Appearance: Present: wd/wn, alert, no apparent distress Eye Exam: Normal inspection: bilateral, PERRL: bilateral Ears, Nose, Throat: Present: normal pharynx Respiratory: Present: no respiratory distress, normal breath sounds, no accessory muscle use, lungs clear Cardiovascular/Chest: Present: regular rate, rhythm, no murmur Gastrointestinal/Abdominal: Present: normal bowel sounds, nontender, nondistended, soft, other - G-tube in place Neurological Exam: Present: alert Skin Exam: Present: normal color, warm/dry Pelvic Exam: Present: other - speculum exam shows stool coming from six o'clock position in the middle of the vagina, no stool from rectum ED Progress - Vital Signs Patient's Vital Signs:: I have reviewed the patient's vital signs. Vital Signs: Vital Signs 04/12/17 16:12 Temperature 36.3 C L Pulse Rate 83 Respiratory 24 H Rate Blood Pressure 168/87 O2 Sat by Pulse 95 Oximetry - Progress/Reassessment Chief Complaint: Genitourinary Problem Progress Note-Subjective: 04/12/17 17:[address] Ramos, as patient appears stable and repair of fistula with her chronic conditions would not be possible transfer patient back to [facility] center, try to keep area as clean as possible Departure Clinical Impression: Rectovaginal fistula - Departure Disposition: [facility] Condition: Fair
== END 2017-04-12 18:25 ==
LOC: ER 16:05
DX: N82.3 Fistula of vagina to large intestine (principal); G30.9 Alzheimer's disease, unspecified; F02.80 Dementia in other diseases classified elsewhere, unspecified severity, without behavioral disturbance, psychotic disturbance, mood disturbance, and anxiety; G89.29 Other chronic pain; M81.0 Age-related osteoporosis without current pathological fracture; I10 Essential (primary) hypertension; E78.5 Hyperlipidemia, unspecified

== ENCOUNTER 2017-08-17 13:00 | Emergency (ER) | payer MEDICARE, BC ==
--- NOTE | 2017-08-17 14:27 | ERNOTE ---
Medical Problem HPI - General Chief Complaint: General Assessment Time Seen by Provider: 08/17/17 14:08 Source: [facility] records Exam Limitations: clinical condition, dementia - Immun/Allergies/Home Medications Immunizations: IMMUNIZATION HX Immunizations Up to Date Yes History of Influenza Vaccine Yes Hx Pneumococcal Vaccination Yes Allergies/Adverse Reactions: Allergies Penicillins Allergy (Verified 08/17/17 13:19) Home Medications: HOME MEDICATIONS Acetaminophen [Tylenol] 650 mg PO QID PRN 07/01/16 [Last Taken Unknown] Cholecalciferol (Vitamin D3) [Vitamin D3] 2,000 unit PO DAILY 07/01/16 [Last Taken Unknown] Clonidine HCl [Catapres] 0.1 mg PO TID 07/01/16 [Last Taken Unknown] Donepezil HCl [Aricept] 10 mg PO HS 07/01/16 [Last Taken Unknown] Vits A,C,E/Lutein/Minerals [I-Faviola Tablet] 2 each PO BID 07/01/16 [Last Taken Unknown] LORazepam [Ativan] 0.5 mg PO Q4H PRN #60 tablet 07/15/16 [Last Taken Unknown] Losartan Potassium [Cozaar] 50 mg PO HS #30 tablet 07/15/16 [Last Taken Unknown] Carbidopa/Levodopa Cr 25/100 [Sinemet Cr 25/100] 1 tab PO QID 04/03/17 [Last Taken Unknown] QUEtiapine FUMARATE [Seroquel] 25 mg PO BID 04/03/17 [Last Taken Unknown] levETIRAcetam [Keppra] 250 mg PO BID 04/03/17 [Last Taken Unknown] L. Rhamnosus GG/Inulin [Culturelle Capsule] 1 each PO BID 04/12/17 [Last Taken Unknown] Pimavanserin Tartrate [Nuplazid] 2 tab PO DAILY 08/17/17 [Last Taken Unknown] Ranitidine HCl [Zantac] 15 mg PO HS 08/17/17 [Last Taken Unknown] - History of Present History Narrative: Patient has a long-standing history of PEG tube, in the neighborhood of one year , and the tube fell out and she is here for placement and verification of placement. Timing: resolved prior to arrival - tube was replaced at the [facility] Review of Systems - Review of Systems Constitutional: Present: See HPI EYE: Present: no symptoms reported ENT: Present: no symptoms reported Respiratory: Present: no symptoms reported Cardiology: Present: no symptoms reported Gastrointestinal/Abdominal: Present: See HPI Genitourinary: Present: no symptoms reported Musculoskeletal: Present: no symptoms reported Skin: Present: no symptoms reported Neurological: Present: other - apparent dementia secondary to encephalopathy Endocrine: Present: no symptoms reported Hematologic/Lymphatic: Present: no symptoms reported Psych: Present: no symptoms reported - Patient's Past Medical History Patient History - Medical: Alzheimer's Disease, Chronic Pain, Osteoporosis, Other - encephalopathy with secondary dementia Patient History - Cardiac/Respiratory: Hypertension, Hyperlipidemia Patient History - Cancer: No Hx of Cancer Patient History - Surgical Procedures: Appendectomy, Cataracts, Cholecystectomy , Hysterectomy, Other Patient History - Other: None - Family History Mother Family History - Medical: , History Unknown Family History - Cardiac/Respiratory: History Unknown Father Family History - Medical: Family History - Cardiac/Respiratory: Coronary Heart Disease - Social History Living Situations: home Abuse History: No History of abuse Psych History: Psychiatric Hx Alcohol Use: none Drug Use: none - Immunizations Immunizations Up to Date: Yes Hx Pneumococcal Vaccination: Yes History of Influenza Vaccine: Yes Physical Exam - Physical Exam General Appearance: Present: no apparent distress Head Exam: Present: normal inspection Neck: Present: normal inspection, nontender Respiratory: Present: no respiratory distress, normal breath sounds, no accessory muscle use, chest nontender, lungs clear Cardiovascular/Chest: Present: regular rate, rhythm, no murmur, normal peripheral pulses Gastrointestinal/Abdominal: Present: normal bowel sounds, nontender, nondistended, soft, no organomegaly, other - we were able to withdraw stomach acid from the replaced PEG tube as well as on reinjection could hear both fluid and the air over the stomach. Rectal Exam: Present: deferred Back Exam: Present: normal inspection, normal range of motion Extremity Exam: Present: normal inspection, non-tender, no edema, normal range of motion Neurological Exam: Present: alert, oriented, normal mood/affect Skin Exam: Present: normal color, warm/dry Lymphatic Exam: Present: no adenopathy ED Progress - Vital Signs Patient's Vital Signs:: I have reviewed the patient's vital signs. Vital Signs: Vital Signs 08/17/17 08/17/17 13:16 13:47 Temperature 36.3 C L Pulse Rate 84 87 Respiratory 14 14 Rate Blood Pressure 105/56 108/58 O2 Sat by Pulse 92 93 Oximetry - X-Ray X-Ray #1 X-Ray: abdomen Interpretation: Reviewed by me - Progress/Reassessment Chief Complaint: General Assessment Plan - Plan Plan: Patient will be returned to the [facility] for continuing care. Departure Clinical Impression: PEG (percutaneous endoscopic gastrostomy) adjustment/replacement/removal - Departure Disposition: [facility] Condition: Good Instructions: PEG Tube Home Guide, [id number], Care of a Feeding Tube, Easy- to-Read Referrals: Allen Altamirano MD [Primary Care Provider] -
[2017-08-17 14:53] VITALS: BP 110/60
== END 2017-08-17 14:30 ==
LOC: ER 13:00
DX: T85.898A Other specified complication of other internal prosthetic devices, implants and grafts, initial encounter (principal); G89.29 Other chronic pain; M81.0 Age-related osteoporosis without current pathological fracture; I10 Essential (primary) hypertension; E78.5 Hyperlipidemia, unspecified

== ENCOUNTER 2017-09-28 07:47 | Emergency (ER) | payer MEDICARE, BC ==
--- NOTE | 2017-09-28 08:46 | ERNOTE ---
Medical Problem HPI - Narrative Date of Service: 09/28/17 - General Chief Complaint: General Assessment Time Seen by Provider: 09/28/17 08:37 Source: patient, RN notes reviewed, detention records - Immun/Allergies/Home Medications Immunizations: IMMUNIZATION HX Immunizations Up to Date Yes History of Influenza Vaccine Yes Hx Pneumococcal Vaccination Yes Allergies/Adverse Reactions: Allergies Penicillins Allergy (Verified 09/28/17 07:53) Home Medications: HOME MEDICATIONS RX: Acetaminophen [Tylenol] 650 mg PO QID PRN 07/01/16 [Last Taken Unknown] RX: Cholecalciferol (Vitamin D3) [Vitamin D3] 2,000 unit PO DAILY 07/01/16 [ Last Taken Unknown] RX: Clonidine HCl [Catapres] 0.1 mg PO TID 07/01/16 [Last Taken Unknown] RX: Donepezil HCl [Aricept] 10 mg PO HS 07/01/16 [Last Taken Unknown] RX: Vits A,C,E/Lutein/Minerals [I-Faviola Tablet] 2 each PO BID 07/01/16 [Last Taken Unknown] RX: LORazepam [Ativan] 0.5 mg PO Q4H PRN #60 tablet 07/15/16 [Last Taken Unknown ] RX: Losartan Potassium [Cozaar] 50 mg PO HS #30 tablet 07/15/16 [Last Taken Unknown] RX: Carbidopa/Levodopa Cr 25/100 [Sinemet Cr 25/100] 1 tab PO QID 04/03/17 [ Last Taken Unknown] RX: QUEtiapine FUMARATE [Seroquel] 25 mg PO BID 04/03/17 [Last Taken Unknown] RX: levETIRAcetam [Keppra] 250 mg PO BID 04/03/17 [Last Taken Unknown] L. Rhamnosus GG/Inulin [Culturelle Capsule] 1 each PO BID 04/12/17 [Last Taken Unknown] Pimavanserin Tartrate [Nuplazid] 2 tab PO DAILY 08/17/17 [Last Taken Unknown] Ranitidine HCl [Zantac] 15 mg PO HS 08/17/17 [Last Taken Unknown] - History of Present History Narrative: Patient is a 76-year-old lady who was brought into the emergency room for abdominal x-ray to confirm placement of recently inserted a PEG tube. She apparently pulled out had a PEG tube at some point today yesterday or early this morning and the surgeon was called another PEG tube was inserted and she is here to confirm placement. Date (Duration): 09/28/17 Review of Systems - Review of Systems Constitutional: Present: no symptoms reported EYE: Present: no symptoms reported Respiratory: Present: See HPI Cardiology: Present: See HPI Gastrointestinal/Abdominal: Present: See HPI Genitourinary: Present: See HPI Musculoskeletal: Present: See HPI - Patient's Past Medical History Patient History - Medical: Alzheimer's Disease, Chronic Pain, Osteoporosis, Other Patient History - Cardiac/Respiratory: Hypertension, Hyperlipidemia Patient History - Cancer: No Hx of Cancer Patient History - Surgical Procedures: Appendectomy, Cataracts, Cholecystectomy , Hysterectomy, Other Patient History - Other: None - Family History Mother Family History - Medical: , History Unknown Family History - Cardiac/Respiratory: History Unknown Father Family History - Medical: Family History - Cardiac/Respiratory: Coronary Heart Disease - Social History Living Situations: home Abuse History: No History of abuse Psych History: Psychiatric Hx Alcohol Use: none Drug Use: none - Immunizations Immunizations Up to Date: Yes Hx Pneumococcal Vaccination: Yes History of Influenza Vaccine: Yes Physical Exam - Physical Exam General Appearance: Present: no apparent distress, other - she appears nonverbal Head Exam: Present: normal inspection, no evidence of injury, other - she appears to have a mask facie Eye Exam: Normal inspection: bilateral Neck: Present: normal inspection, nontender Respiratory: Present: no respiratory distress, normal breath sounds Cardiovascular/Chest: Present: regular rate, rhythm, normal peripheral pulses Gastrointestinal/Abdominal: Present: normal bowel sounds, nontender, nondistended, soft, other - she does have a PEG Tube inserted at the left mid to upper quadrant area of the abdominal wall. Extremity Exam: Present: normal inspection, normal except - - she appears to have a resting tremor of both UPPER extremities but more on the right than on the left. Skin Exam: Present: normal color, warm/dry Lymphatic Exam: Present: no adenopathy ED Progress - Results and Orders Patient's Lab Results:: I have reviewed the patient's lab results. - Vital Signs Patient's Vital Signs:: I have reviewed the patient's vital signs. Vital Signs: Vital Signs 09/28/17 09/28/17 07:49 08:29 Temperature 36.0 C L Pulse Rate 88 79 Respiratory 12 14 Rate Blood Pressure 127/38 120/46 O2 Sat by Pulse 95 97 Oximetry - X-Ray X-Ray #1 X-Ray: abdomen Interpretation: Interp. by me, Reviewed by me - Progress/Reassessment Chief Complaint: General Assessment Progress:: Unchanged - Transfer of Care Expected Disposition: Discharge Departure Clinical Impression: PEG (percutaneous endoscopic gastrostomy) status - Departure Disposition: Other health care facility Condition: Stable Instructions: Care of a Feeding Tube Referrals: Marilee Hernandez DO [Primary Care Provider] -
[2017-09-28 10:39] VITALS: BP 137/52
== END 2017-09-28 10:57 | disposition short-term general hospital (02) ==
LOC: ER 07:47
DX: Z43.1 Encounter for attention to gastrostomy (principal); G30.9 Alzheimer's disease, unspecified; I10 Essential (primary) hypertension